=== PATIENT | male | born 1970 | race Caucasian/White ===

== ENCOUNTER 2017-06-29 07:25 | Emergency (ER) | payer OTHER ==
[~2017-06-29] VITALS: Ht 180.3 cm; Wt 136.0 kg
[2017-06-29 07:29] VITALS: Ht 180.3 cm; Wt 136.0 kg
[2017-06-29] MEDS ORDERED: ONDANSETRON (ODT) 4 MG TAB ODT STA (07:39)
--- NOTE | 2017-06-29 07:42 | ERD ---
ER Documentation Chief Complaint Chief Complaint RT UPPER ABD PAIN X 3 DAYS HPI 47-year-old male history of obesity states that he is otherwise healthy comes in with right upper quadrant and right flank pain that started 2 days ago. Patient states it is sharp, intermittent, mild to moderate. He has had no difficulty with voiding, no hematuria. He denies fevers chills, nausea, vomiting, diarrhea. Patient denies chest pain, shortness of breath. ROS All systems reviewed and are negative except as per history of present illness. Medications Home Meds Active Scripts Ondansetron (Ondansetron Odt) 4 Mg Tab.rapdis, 4 MG PO Q6H Y for NAUSEA AND/OR VOMITING, #10 TAB Prov:LUPILLO MCCARTHY PA-C 06/29/17 Tamsulosin Hcl* (Flomax*) 0.4 Mg Cap.er.24h, 0.4 MG PO BID, #30 CAP Prov:LUPILLO MCCARTHY PA-C 06/29/17 Ibuprofen* (Motrin*) 600 Mg Tab, 600 MG PO Q6, #30 TAB Prov:LUPILLO MCCARTHY PA-C 06/29/17 Hydrocodone/Acetaminophen ([place] 5-325 Tablet) 1 Each Tablet, 1 TAB PO Q6H Y for PAIN, #20 TAB Prov:LUPILLO MCCARTHY PA-C 06/29/17 Allergies Allergies: Coded Allergies: No Known Allergy (Unverified , 06/29/17) PMhx/Soc Medical and Surgical Hx: pt denies Medical Hx, pt denies Surgical Hx History of Surgery: No Anesthesia Reaction: No Hx Neurological Disorder: No Hx Respiratory Disorders: No Hx Cardiac Disorders: No Hx Psychiatric Problems: No Hx Miscellaneous Medical Probl: No Hx Alcohol Use: No Hx Substance Use: No Hx Tobacco Use: No Smoking Status: Never smoker Physical Exam Vitals Vital Signs Date Time Temp Pulse Resp B/P Pulse Ox O2 Delivery O2 Flow Rate FiO2 06/29/17 07:29 98.2 84 18 133/79 98 Physical Exam General: Well-developed, well-nourished. The patient appears in no acute distress. HEENT: Head is normocephalic, atraumatic. No scleral icterus. Neck: Supple. Nontender. Lungs: Clear to auscultation. Normal air movement. Heart: Regular rate and rhythm. S1 and S2 are normal. No murmurs, gallops, or rubs. Abdomen: Soft, right upper and right mid abdomen is tender, nondistended. Bowel sounds are normoactive. No rebound pain, guarding. No McBurney's tenderness. Extremities: No clubbing or cyanosis. Normal pulses. Moving extremities x 4. No weakness. Neurologic: Alert and oriented 3. No focal deficits. Skin: Normal turgor. No rash or lesions. Result Diagram: 06/29/17 0746 06/29/17 0746 Results 24 hrs Laboratory Tests Test 06/29/17 07:46 White Blood Count 8.810^3/ul Red Blood Count 5.0910^6/ul Hemoglobin 16.1g/dl Hematocrit 46.4% Mean Corpuscular Volume 91.2fl Mean Corpuscular Hemoglobin 31.6pg Mean Corpuscular Hemoglobin Concent 34.7g/dl Red Cell Distribution Width 12.0% Platelet Count 12256^3/UL Mean Platelet Volume 8.7fl Neutrophils % 51.1% Lymphocytes % 39.0% Monocytes % 7.5% Eosinophils % 1.4% Basophils % 0.7% Nucleated Red Blood Cells % 0.0/100WBC Neutrophils # 4.510^3/ul Lymphocytes # 3.410^3/ul Monocytes # 0.710^3/ul Eosinophils # 0.110^3/ul Basophils # 0.110^3/ul Nucleated Red Blood Cells # 0.010^3/ul Urine Color YELLOW Urine Clarity CLEAR Urine pH 6.0 Urine Specific [place] 1.019 Urine Ketones NEGATIVEmg/dL Urine Nitrite NEGATIVEmg/dL Urine Bilirubin NEGATIVEmg/dL Urine Urobilinogen NEGATIVEmg/dL Urine Leukocyte Esterase NEGATIVELeu/ul Urine Microscopic RBC 48/HPF Urine Microscopic WBC 3/HPF Urine Bacteria FEW/HPF Urine Hemoglobin 2+mg/dL Urine Glucose NEGATIVEmg/dL Urine Total Protein NEGATIVEmg/dl Sodium Level 143mmol/L Potassium Level 3.8mmol/L Chloride Level 106mmol/L Carbon Dioxide Level 24mmol/L Anion Gap 17 Blood Urea Nitrogen 12mg/dl Creatinine 0.69mg/dl Glucose Level 101mg/dl Calcium Level 9.2mg/dl Total Bilirubin 0.3mg/dl Direct Bilirubin 0.00mg/dl Indirect Bilirubin 0.3mg/dl Aspartate Amino Transf (AST/SGOT) 28IU/L Alanine Aminotransferase (ALT/SGPT) 47IU/L Alkaline Phosphatase 99IU/L Total Protein 7.1g/dl Albumin 4.0g/dl Globulin 3.10g/dl Albumin/Globulin Ratio 1.29 Lipase 52U/L Current Medications Medications (Trade) Dose Ordered Sig/Yvonne Route PRN Reason Start Time Stop Time Status Last Admin Dose Admin Ibuprofen (Motrin) 600 mg ONCE ONCE PO 06/29/17 08:00 06/29/17 08:01 DC 06/29/17 07:45 Acetaminophen/ Hydrocodone Bitart ([place] (10/325)) 1 tab ONCE ONCE PO 06/29/17 08:00 06/29/17 08:01 DC 06/29/17 07:45 Ondansetron HCl (Zofran Odt) 4 mg ONCE STAT ODT 06/29/17 07:39 06/29/17 07:40 DC 06/29/17 07:45 DIAGNOSTIC IMAGING REPORT Patient: JUDIE AU : 1970 Age: 47 Sex: M MR #: [id number] DOS: 06/29/17 0739 Ordering MD: LUPILLO MCCARTHY PA-C Location: E Room/Bed: PROCEDURE: CT abdomen and pelvis without contrast. CLINICAL INDICATION: Right upper quadrant pain, right flank pain TECHNIQUE: CT scan of the abdomen and pelvis without contrast was performed on a multi-slice CT scanner. The patient was scanned without intravenous contrast. 3-D sagittal and coronal reformatted images were obtained from the axial source images. CTDI: 23.8 and DLP: 1842.3 One or more of the following dose reduction techniques were used: Automated exposure control. Adjustment of the mA and/or kV according to patient's size. Use of iterative reconstruction technique. DICOM images are available. COMPARISON: None. FINDINGS: Incidental images through the lung bases reveal no evidence of focal basilar consolidation or pleural effusion. The liver, gallbladder, pancreas and adrenal glands are unremarkable for noncontrast study. The calcification is seen in the spleen, likely related to previous granulomatous disease. There is moderate right hydronephrosis and hydroureter to the level of the distal ureter where there is a 2 mm calculus, just at the UVJ. There is a 3 mm nonobstructing intrarenal calculus in the superior right kidney. No additional urinary tract calculi are identified. No significant retroperitoneal adenopathy is identified. Mild atherosclerotic changes are seen in the abdominal aorta. There is a small fat-containing ventral hernia just above the umbilicus. The stomach is grossly unremarkable. There is no evidence of small bowel obstruction, appendicitis or diverticulitis. No free fluid or free intraperitoneal air is identified. Evaluation of the osseous structures reveals no acute change. IMPRESSION: 1. There is moderate right hydronephrosis and hydroureter to the level of the distal ureter, or there is a 2 mm calculus, just at the UVJ. 2. A 3 mm nonobstructing intrarenal calculus is seen in the superior right kidney. 3. A small fat-containing ventral hernia is seen just above the umbilicus. 4. The calcification is seen in the spleen, likely related to previous granulomatous disease. RPTAT:AAJJ Elias Delgado Physician Date Time Electronically viewed and signed by Elias Delgado Physician on 06/29/2017 08: 41 MC/ CC: LUPILLO MCCARTHY PA-C Procedures/[facility] ED COURSE: Patient received ibuprofen, [place] and Zofran. Labs and urine as well as CT abdomen pelvis were obtained. MEDICAL DECISION MAKIN-year-old male comes in the right mid to right upper quadrant abdominal pain, the patient has a 2 mm ureteral stone on the right side with mild hydronephrosis , as well as a renal stone at 3 mm on the right side. There is no evidence of renal failure, injury, or any kidney infection, septic kidney stones. The patient's vital signs were reviewed, he is afebrile, there is no leukocytosis. There is no indication for admission at this time. Serial abdominal examinations were done, with [place] and ibuprofen the patient is resting comfortably at this time. The patient was advised that he will likely pass a stone but with multiple kidney stones patient was advised to follow-up with his PCP, obtain a referral to see urology. Departure Diagnosis: Primary Impression: Ureteral stone with hydronephrosis Condition: LUPILLO Tenorio PA-C Jun 29, 2017 07:42
[2017-06-29 07:57] LABS: BASOPHIL # 0.1 10^3/ul (0.0-0.1); BASOPHILS % 0.7 % (0.0-2.0); EOSINOPHILS # 0.1 10^3/ul (0.0-0.5); EOSINOPHILS % 1.4 % (0.0-7.0); HEMATOCRIT 46.4 % (42.0-52.0); HEMOGLOBIN 16.1 g/dl (14.0-18.0); LYMPHOCYTES # 3.4 10^3/ul (0.8-2.9); MEAN CORPUSCULAR HEMOGLOBIN 31.6 pg (29.0-33.0); MEAN CORPUSCULAR HGB CONC 34.7 g/dl (32.0-37.0); MEAN CORPUSCULAR VOLUME 91.2 fl (82.0-101.0); MEAN PLATELET VOLUME 8.7 fl (7.4-10.4); MONOCYTE # 0.7 10^3/ul (0.3-0.9); MONOCYTES % 7.5 % (0.0-11.0); NEUTROPHIL # 4.5 10^3/ul (1.6-7.5); NEUTROPHILS % 51.1 % (39.0-77.0); PLATELET COUNT 323 10^3/UL (140-415); RED BLOOD COUNT 5.09 10^6/ul (4.70-6.10); WHITE BLOOD COUNT 8.8 10^3/ul (4.8-10.8)
[2017-06-29] MEDS ORDERED: HYDROCODONE/APAP (10/325) TAB PO ONE (08:00)
[2017-06-29] MEDS ORDERED: IBUPROFEN 600 MG TAB PO ONE (08:00)
[2017-06-29 08:12] LABS: ALBUMIN/GLOBULIN RATIO 1.29; BILIRUBIN,INDIRECT 0.3 mg/dl (0-1.1); BILIRUBIN,TOTAL 0.3 mg/dl (0.2-1.3); CALCIUM 9.2 mg/dl (8.4-10.2); CREATININE 0.69 mg/dl (0.61-1.24); POTASSIUM 3.8 mmol/L (3.5-5.1); TOTAL PROTEIN 7.1 g/dl (6.1-8.1)
--- NOTE | 2017-06-29 08:41 | RADRPT ---
PROCEDURE: CT abdomen and pelvis without contrast. CLINICAL INDICATION: Right upper quadrant pain, right flank pain TECHNIQUE: CT scan of the abdomen and pelvis without contrast was performed on a multi-slice CT [facility]. The patient was scanned without intravenous contrast. 3-D sagittal and coronal reformatted images were obtained from the axial source images. CTDI: 23.8 and DLP: 1842.3 One or more of the following dose reduction techniques were used: Automated exposure control. Adjustment of the mA and/or kV according to patient's size. Use of iterative reconstruction technique. DICOM images are available. COMPARISON: None. FINDINGS: Incidental images through the lung bases reveal no evidence of focal basilar consolidation or pleura l effusion. The liver, gallbladder, pancreas and adrenal glands are unremarkable for noncontrast study. The darrell cification is seen in the spleen, likely related to previous granulomatous disease. There is moderate right hydronephrosis and hydroureter to the level of the distal ureter where ther e is a 2 mm calculus, just at the UVJ. There is a 3 mm nonobstructing intrarenal calculus in the sup erior right kidney. No additional urinary tract calculi are identified. No significant retroperitoneal adenopathy is identified. Mild atherosclerotic changes are seen in t he abdominal aorta. There is a small fat-containing ventral hernia just above the umbilicus. The stomach is grossly unremarkable. There is no evidence of small bowel obstruction, appendicitis or diverticulitis. No free fluid or free intraperitoneal air is identified. Evaluation of the osse ous structures reveals no acute change. IMPRESSION: 1. There is moderate right hydronephrosis and hydroureter to the level of the distal ureter, or the re is a 2 mm calculus, just at the UVJ. 2. A 3 mm nonobstructing intrarenal calculus is seen in the superior right kidney. 3. A small fat-containing ventral hernia is seen just above the umbilicus. 4. The calcification is seen in the spleen, likely related to previous granulomatous disease. RPTAT:AAJJ Physician Roz Date Time Electronically viewed and signed by Physician Roz on 06/29/2017 08:41 /
[2017-06-29 09:11] LABS: ADD UMIC YES; UR ASCORBIC ACID NEGATIVE (NEGATIVE); UR BACTERIA FEW /HPF (NONE SEEN); UR BILIRUBIN (Dip) NEGATIVE (NEGATIVE); UR BLOOD (Dip) 2+ mg/dL (NEGATIVE); UR CLARITY CLEAR (CLEAR); UR COLOR YELLOW (YELLOW); UR GLUCOSE (Dip) NEGATIVE (NEGATIVE); UR KETONES (Dip) NEGATIVE (NEGATIVE); UR LEUKOCYTE ESTERASE (Dip) NEGATIVE Leu/ul (NEGATIVE); UR NITRITE (Dip) NEGATIVE (NEGATIVE); UR RBC 48 /HPF (0-5); UR SPECIFIC GRAVITY (Dip) 1.019 (1.003-1.030); UR TOTAL PROTEIN (Dip) NEGATIVE (NEGATIVE); UR UROBILINOGEN (Dip) NEGATIVE (NEGATIVE)
[2017-06-29] MEDS ORDERED: HYDR-906 PO (09:16)
[2017-06-29] MEDS ORDERED: ONDA4TAB14 PO (09:16)
[2017-06-29] MEDS ORDERED: IBUP-1542 PO (09:16)
[2017-06-29] MEDS ORDERED: TAMS-14 PO (09:16)
== END 2017-06-29 10:06 | disposition home or self-care (01) ==
LOC: FTE 07:25
DX: N13.2 Hydronephrosis with renal and ureteral calculous obstruction (principal)
CPT/HCPCS: 36415; 74176; 80053; 81001; 83690; 85025; Z7502; Z7610